=== PATIENT | female | born 1935 | race Caucasian/White ===

== ENCOUNTER 2016-11-17 13:38 | Observation (INO) ==
[2016-11-17] MEDS ORDERED: Aspirin 81 MG TAB.CHEW PO ONE (13:57)
[2016-11-17] MEDS ORDERED: Nitroglycerin 0.4 MG TAB.SUBL SL PRN (13:57)
[2016-11-17 13:59] LABS: Basophils % 0.8 %; Hematocrit 38.7 % (35.3-44.9); Hemoglobin 12.6 g/dL (11.5-15.4); Immature Granulocytes % 0.2 % (0-4); Lymphocytes # 1.6 K/mcL (0.6-4.6); Lymphocytes % 31.4 %; Mean Corpuscular HGB Conc 32.6 g/dL (31.6-35.5); Mean Corpuscular Hemoglobin 29.1 pg (28.0-33.3); Mean Corpuscular Volume 89.4 fL (83.0-100.0); Mean Platelet Volume 9.9 fL (9.4-12.4); Monocytes # 0.5 K/mcL (0.0-1.3); Monocytes % 10.5 %; Neutrophils # 2.8 K/mcL (1.6-8.9); Platelet Count 157 K/mcL (140-400); Red Blood Count 4.33 M/mcL (3.82-4.97); Red Cell Distribution Width 13.2 % (11.5-14.5); Segmented Neutrophils % 57.1 %
[2016-11-17 14:12] LABS: Calcium 9.6 mg/dL (8.6-10.8); Potassium 3.7 mEq/L (3.5-4.5)
[2016-11-17] MEDS ORDERED: *HR* Morphine 2 MG/ML SYRINGE IVP ONE (14:32)
--- NOTE | 2016-11-17 14:32 | Emergency Department Note ---
Disposition Clinical Impression: Chest pain Disposition: Admitted As Inpatient Chest Pain HPI - General Chief Complaint: ED Chest Pain Stated Complaint: Chest pain Time Seen by Provider: 11/17/16 13:54 Source: patient Limitations: no limitations Vital Signs Reviewed: Yes Nursing Notes Reviewed: Yes - History of Present Illness HPI Narrative: She presents with chest pain that started at 10:30 AM. Patient described the pain as a pressure with radiation to her left arm. Patient denies prior history of similar symptoms denies shortness of breath associated. Patient states has been several years since her last stress test and she is never had a heart catheterization. Patient denies fevers or chills patient denies bowel bladder dysfunction. Patient denies dizziness or vision issues. Severity scale (1-10): 4 - Related Data Home Medications Medication Instructions Recorded Confirmed Aspirin [Lo-Dose Aspirin EC] 81 mg PO DAILY 03/05/16 11/17/16 LORazepam [Ativan] 0.5 mg PO BID 03/05/16 11/17/16 Mv W-Ca/Iron/FA/Lutein/Hrb#179 1 each PO DAILY 03/05/16 11/17/16 [Jem Multivit For Women Caplet] Ranitidine HCl [Heartburn Relief] 150 mg PO BID 03/05/16 11/17/16 Rosuvastatin Calcium [Crestor] 5 mg PO DAILY 03/05/16 11/17/16 Allergies Allergy/AdvReac Type Severity Reaction Status Date / Time Penicillins [PCN] Allergy Hives Verified 11/17/16 13:54 Streptomycin Allergy Hives Verified 11/17/16 13:54 Sulfa (Sulfonamide Allergy Rash Verified 11/17/16 13:54 Antibiotics) All systems ED: reviewed and negative except as stated. Chest Pain PMH - Past Medical History Medical history: Reports: GERD, hyperlipidemia, renal disease Psychiatric history: Reports: anxiety - Social History Smoking Status: Never smoker Alcohol use: Reports: none Drug use: Reports: none Physical Exam - General Limitations: no limitations General appearance: alert, in no apparent distress - Head Head exam: atraumatic, normocephalic, normal inspection - Eye Eye exam: Present: normal appearance, PERRL, EOMI - ENT ENT exam: normal exam, normal oropharynx, mucous membranes moist - Neck Neck exam: Present: normal inspection, full ROM, trachea midline - Chest Chest inspection: Present: normal inspection, symmetric chest wall rise - Respiratory Respiratory exam: Present: normal lung sounds bilaterally - Cardiovascular Cardiovascular exam: Present: regular rate, normal rhythm, normal heart sounds - Abdominal Exam Abdominal exam: Present: soft, Non-Tender. Absent: tenderness, distention, guarding, rebound, rigidity - Extremities Exam Extremities exam: Present: normal inspection, full ROM. Absent: tenderness, pedal edema - Back Exam Back exam: Present: normal inspection, full ROM. Absent: tenderness - Neurological Exam Neurological exam: Present: alert, oriented X3 - Psychiatric Psychiatric exam: Present: normal affect, normal mood - Skin Skin exam: Present: warm, dry, intact, normal color Course Vital Signs Temperature 97.4 F L 11/17/16 13:44 Pulse Rate 75 11/17/16 13:44 Respiratory Rate 18 11/17/16 13:44 Blood Pressure 161/69 11/17/16 13:44 O2 Sat by Pulse Oximetry 100 11/17/16 13:44 Temperature 97.4 F L 11/17/16 13:44 Pulse Rate 64 11/17/16 16:56 Respiratory Rate 16 11/17/16 16:56 Blood Pressure 132/65 11/17/16 16:56 O2 Sat by Pulse Oximetry 94 11/17/16 16:56 Oxygen Delivery Oxygen Delivery Room Air Chest Pain - Differential Diagnosis Likely: fracture of rib, pneumothorax, atypical chest pain, st elevation myocardial infraction, chest pain - Lab Data Lab results reviewed: Yes I reviewed the patient's lab results. Result diagrams: 11/17/16 13:50 11/17/16 13:50 Lab Results 11/17/16 11/17/16 11/17/16 Range/Units 13:50 13:50 13:50 WBC 4.9 (4.3-11.1) K/mcL RBC 4.33 (3.82-4.97) M/mcL Hgb 12.6 (11.5-15.4) g/dL Hct 38.7 (35.3-44.9) % MCV 89.4 (83.0-100.0) fL MCH 29.1 (28.0-33.3) pg MCHC 32.6 (31.6-35.5) g/dL RDW 13.2 (11.5-14.5) % Plt Count 157 (140-400) K/mcL MPV 9.9 (9.4-12.4) fL Immature Gran % 0.2 (0-4) % Seg Neutrophils % 57.1 % Lymphocytes % 31.4 % Monocytes % 10.5 % Eosinophils % 0.0 % Basophils % 0.8 % Neutrophils # 2.8 (1.6-8.9) K/mcL Lymphocytes # 1.6 (0.6-4.6) K/mcL Monocytes # 0.5 (0.0-1.3) K/mcL Eosinophils # 0.0 (0.0-0.6) K/mcL Basophils # 0.0 (0.0-0.2) K/mcL Sodium 140 (136-145) mEq/L Potassium 3.7 (3.5-4.5) mEq/L Chloride 108 (98-109) mEq/L Carbon Dioxide 26 (19-29) mEq/L BUN 22 H (7-20) mg/dL Creatinine 1.22 H (0.57-1.11) mg/dL Est GFR ( Amer) 51 L (> 60) Est GFR (Non-Af Amer) 42 L (> 60) BUN/Creatinine Ratio 18 (6-26) Glucose 129 H (70-99) mg/dL Calculated Osmolality 295 (280-300) Calcium 9.6 (8.6-10.8) mg/dL Troponin I 0.01 (0-0.03) ng/mL Urine Color (Yellow) Urine Clarity (Clear) Urine pH (5.0-8.0) pH Units Ur Specific [place] (1.010-1.025) Urine Protein (Neg-Trace) mg/dL Urine Glucose (UA) (Normal) mg/dL Urine Ketones (Negative) mg/dL Urine Blood (Negative) Urine Nitrite (Negative) Urine Bilirubin (Negative) Urine Urobilinogen (Normal) mg/dL Ur Leukocyte Esterase (Negative) Urine Microscopic RBC (0-3) per hpf Urine Microscopic WBC (0-3) per hpf Ur Squamous Epith Cells (None-Few) per lpf Urine Bacteria (None-Few) per hpf Hyaline Casts (None-Few) per lpf 11/17/16 Range/Units 14:45 WBC (4.3-11.1) K/mcL RBC (3.82-4.97) M/mcL Hgb (11.5-15.4) g/dL Hct (35.3-44.9) % MCV (83.0-100.0) fL MCH (28.0-33.3) pg MCHC (31.6-35.5) g/dL RDW (11.5-14.5) % Plt Count (140-400) K/mcL MPV (9.4-12.4) fL Immature Gran % (0-4) % Seg Neutrophils % % Lymphocytes % % Monocytes % % Eosinophils % % Basophils % % Neutrophils # (1.6-8.9) K/mcL Lymphocytes # (0.6-4.6) K/mcL Monocytes # (0.0-1.3) K/mcL Eosinophils # (0.0-0.6) K/mcL Basophils # (0.0-0.2) K/mcL Sodium (136-145) mEq/L Potassium (3.5-4.5) mEq/L Chloride (98-109) mEq/L Carbon Dioxide (19-29) mEq/L BUN (7-20) mg/dL Creatinine (0.57-1.11) mg/dL Est GFR ( Amer) (> 60) Est GFR (Non-Af Amer) (> 60) BUN/Creatinine Ratio (6-26) Glucose (70-99) mg/dL Calculated Osmolality (280-300) Calcium (8.6-10.8) mg/dL Troponin I (0-0.03) ng/mL Urine Color Yellow (Yellow) Urine Clarity Clear (Clear) Urine pH 6.5 (5.0-8.0) pH Units Ur Specific [place] 1.014 (1.010-1.025) Urine Protein Negative (Neg-Trace) mg/dL Urine Glucose (UA) Normal (Normal) mg/dL Urine Ketones Negative (Negative) mg/dL Urine Blood Negative (Negative) Urine Nitrite Negative (Negative) Urine Bilirubin Negative (Negative) Urine Urobilinogen Normal (Normal) mg/dL Ur Leukocyte Esterase Moderate H (Negative) Urine Microscopic RBC 0-3 (0-3) per hpf Urine Microscopic WBC 5-15 H (0-3) per hpf Ur Squamous Epith Cells Few (None-Few) per lpf Urine Bacteria None Seen (None-Few) per hpf Hyaline Casts None Seen (None-Few) per lpf - Radiology Data Radiology results reviewed: Yes I reviewed the patient's radiology results. Chest X-Ray 11/17/16 13:53 IMPRESSION: No acute cardiopulmonary disease. D/ / Nile Valdez MD / Nile Valdez MD Interpreting Provider: Nile Valdez MD - EKG Data EKG attestation: Yes I reviewed and interpreted this EKG. EKG shows normal: sinus rhythm Rate: normal Rhythm: NSR
[2016-11-17] MEDS ORDERED: Ondansetron 4 MG/2 ML VIAL IVP ONE (14:37)
[2016-11-17 15:28] LABS: Bilirubin,Urine Negative (Negative); Blood,Urine Negative (Negative); Clarity,Urine Clear (Clear); Color,Urine Yellow (Yellow); Glucose,Urine (UA) Normal (Normal); Ketones,Urine Negative (Negative); Leukocyte Esterase,Urine Moderate (Negative); Nitrite,Urine Negative (Negative); PH,Urine 6.5 pH Units (5.0-8.0); Protein,Urine Negative (Neg-Trace); Specific Gravity,Urine 1.014 (1.010-1.025); Urobilinogen,Urine Normal (Normal)
[2016-11-17 15:32] LABS: Bacteria,Urine None Seen per hpf (None-Few); Hyaline Casts,Urine None Seen per lpf (None-Few); RBC,Urine 0-3 per hpf (0-3); Squamous Epithelial Cell,Urine Few per lpf (None-Few)
--- NOTE | 2016-11-17 19:49 | Event Note ---
Date of Encounter: 11/17/16 Time of Encounter: 19:47 I examined this patient and my medical decision-making was reviewed with the Advanced Practice Nurse, Ashlee Egan CNP. I agree with the documented findings, disposition and treatment plan as described except to the extent set forth below. The patient presented with left-sided sudden onset of pressure-like chest pain while she was ambulating. Denies any associated diaphoresis lightheadedness and nausea. Pain was relieved with aspirin and nitroglycerin. Currently she is chest pain-free. On exam she is in no acute distress. Heart is regular with normal S1 and a split S2, lungs are clear to auscultation bilaterally, abdomen is soft. EKG revealed by myself shows normal sinus rhythm with LVH, no ST or T-wave changes. Troponin is 0.01. Creatinine is 1.22. Her baseline and June 2015 was 1.2. Plan: Chest pain with risk factors including age and gender and hyperlipidemia. We will place the patient in observation, monitor on telemetry, trend troponin. Order a stress test in the morning. Obtain echocardiogram. For DVT prophylaxis we will encourage early ambulation. She is fully ambulatory and therefore does not require pharmacological prophylaxis.
--- NOTE | 2016-11-17 20:12 | Internal Med History&Physical ---
Date of Encounter: 11/17/16 Time of Encounter: 20:09 Assessment and Plan (1) Chest pain Current visit: Yes Status: Acute That started on Nile Cowgill. Relieved with nitroglycerin in the ED. Has not had a previous ischemic eval. Initial troponin negative, EKG atrial paced. Continue to cycle troponin, check echo, and stress test. Consult cardiology if needed. Continue home aspirin and statin. PRN nitroglycerin. Qualifiers: Chest pain type: unspecified Qualified Code(s): R07.9 - Chest pain, unspecified (2) CKD (chronic kidney disease) stage 3, GFR 30-59 ml/min Current visit: Yes Status: Acute Per history. Creatinine 1.2, which appears to be baseline. Intermittently monitor. (3) GERD (gastroesophageal reflux disease) Current visit: Yes Status: Acute Per history. Continue home PPI. Qualifiers: Esophagitis presence: without esophagitis Qualified Code(s): K21.9 - Gastro -esophageal reflux disease without esophagitis (4) Anxiety Current visit: Yes Status: Acute Per history. Symptoms controlled with home Ativan. (5) DVT prophylaxis Current visit: Yes Status: Acute Heparin. Internal Medicine - H&P: HPI Chief complaint: Chest pain Admitted From: Home History of present illness: Ms. Infante is a 80 year old female with past medical history hyperlipidemia, GERD, anxiety who presented to [facility] on 2016 with complaints of chest pain. She was placed in observation for ACS rule out. Information obtained from chart review and patient report. Patient states she was at [employer] shopping with chest pain started chest pain was midsternal radiating to the left she describes the pain as tall rated at 5 out of 10 nothing made worse and nitroglycerin relieved the chest pain in the ED. She has no chest pain on my exam. No shortness of breath no abdominal pain no nausea vomiting or diarrhea Past Med Surg Social Fam HX - Past Medical History Medical history: GERD, hyperlipidemia, renal disease Psychiatric history: anxiety - Past Surgical History Surgical History: non-contributory - Social History Smoking Status: Never smoker Smokeless Tobacco Status: No Alcohol use: none Drug use: none - Additional Family History Additional family history: reviewed and non-contributory Internal Medicine - H&P: Meds Aspirin [Lo-Dose Aspirin EC] 81 mg PO DAILY 03/05/16 [History] LORazepam [Ativan] 0.5 mg PO BID 03/05/16 [History] Mv W-Ca/Iron/FA/Lutein/Hrb#179 [Jem Multivit For Women Caplet] 1 each PO DAILY 03/05/16 [History] Ranitidine HCl [Heartburn Relief] 150 mg PO BID 03/05/16 [History] Rosuvastatin Calcium [Crestor] 5 mg PO DAILY 03/05/16 [History] Allergies Penicillins [PCN] Allergy (Verified 11/17/16 13:54) Hives Streptomycin Allergy (Verified 11/17/16 13:54) Hives Sulfa (Sulfonamide Antibiotics) Allergy (Verified 11/17/16 13:54) Rash All Systems PM: A 10-system review of systems was performed and is negative for pertinent findings except as documented above in the HPI. - Constitutional Constitutional: no chills, no fever(s), no night sweats - EENT Eyes: no change in vision, no discharge, no pain, no photophobia Ears: no ear discharge, no ear pain, no tinnitus Nose, mouth and throat: no dysphagia, no nasal discharge, no neck pain, no sore throat - Cardiovascular Cardiovascular ROS IM: no chest pain, no diaphoresis, no dyspnea, no lightheadedness, no palpitations, no syncope - Respiratory Respiratory: no cough, no dyspnea, no wheezing, no excessive phlegm production - Gastrointestinal Gastrointestinal: no abdominal pain, no diarrhea, no hematemesis, no hematochezia, no melena, no nausea, no vomiting - Genitourinary Genitourinary: no change in urinary stream, no dysuria, no flank pain, no hematuria - Musculoskeletal Musculoskeletal ROS IM: no numbness, no tingling - Integumentary Integumentary IM: no rash, no unusual bruising - Neurological Neurological ROS: no confusion, no convulsions, no focal weakness, no numbness, no tingling, no tremor(s) - Hematologic/Lymphatic Hematologic/Lymphatic: no easy bruising - Constitutional Vitals: Temp Pulse Resp BP Pulse Ox 97.3 F L 66 15 126/71 94 11/17/16 19:28 11/17/16 19:28 11/17/16 19:28 11/17/16 19:28 11/17/16 19:28 - Head Head exam: Present: atraumatic, normocephalic - Eye Eye exam: Present: PERRL, conjuntiva pink, sclera anicteric Pupils: Present: PERRL - Neck Neck exam general surgery: Present: supple, trachea midline. Absent: lymphadenopathy - Respiratory Respiratory exam: Present: CTAB. Absent: accessory muscle use, rales, rhonchi, wheezes - Cardiovascular Cardiovascular exam: Present: RRR, +S1, +S2. Absent: diastolic murmur, gallop, rubs, systolic murmur - GI/Abdominal GI/Abdominal exam: Present: normal bowel sounds, soft, no peritoneal signs. Absent: distended, tenderness - Extremities Exam Extremities exam: Present: warm, radial pulses palpable and symetrical. Absent : calf tenderness, cyanotic, pedal edema - Neurological Exam Neurological exam: Present: CN II-XII intact, oriented X3, no focal deficits. Absent: pronater drift, facial droop, speech deficit - Skin Skin exam: Present: dry, intact Internal Med - H&P Results - Labs CBC & Chem 7: 11/17/16 13:50 11/17/16 13:50 - EKG Data EKG shows normal: sinus rhythm
[2016-11-17] MEDS: *HR* LORazepam 0.5 MG TABLET PO SCH (21:18)
[2016-11-17] MEDS: Famotidine 20 MG TABLET PO SCH (21:18)
[2016-11-18 01:43] LABS: Basophils % 0.4 %; Hematocrit 34.4 % (35.3-44.9); Hemoglobin 11.2 g/dL (11.5-15.4); Immature Granulocytes % 0.1 % (0-4); Lymphocytes # 1.8 K/mcL (0.6-4.6); Lymphocytes % 26.9 %; Mean Corpuscular HGB Conc 32.6 g/dL (31.6-35.5); Mean Corpuscular Hemoglobin 28.9 pg (28.0-33.3); Mean Corpuscular Volume 88.9 fL (83.0-100.0); Mean Platelet Volume 9.7 fL (9.4-12.4); Monocytes # 0.7 K/mcL (0.0-1.3); Monocytes % 10.9 %; Neutrophils # 4.1 K/mcL (1.6-8.9); Platelet Count 138 K/mcL (140-400); Red Blood Count 3.87 M/mcL (3.82-4.97); Red Cell Distribution Width 13.5 % (11.5-14.5); Segmented Neutrophils % 61.7 %
[2016-11-18 02:04] LABS: Potassium 4.2 mEq/L (3.5-4.5)
[2016-11-18] MEDS ORDERED: Regadenoson 0.4 MG/5 ML SYRINGE IVP ONE (06:28)
[2016-11-18] MEDS ORDERED: Aspirin 81 MG TAB.CHEW PO SCH (09:00)
--- NOTE | 2016-11-18 10:33 | Nuclear Medicine Stress Report ---
Regadenoson Nuclear Stress Name: Jade Infante Date of Study: 11/18/2016 Date: 1935 Ht: 64.0 in Medical Record#: [id number] Age: 80 Wt: 156.0 lb Gender: Female Order #: [id number] Location: [facility] Room: [facility] Supervising Provider: Tricia Simmons CNP Reading Physician: Danielle Knutson DO Ordering Physician: Vanessa Saldivar MD Primary Care Physician: Marin Roldan DO Stress Technologist: Earnest Khanna LYE PEEL OPERATOR, [facility] Insulation Machine Operator: Kwadwo Terrazas Indications: Chest Pain Impression: Perfusion imaging was negative for ischemia or infarct. Pharmacologic ECG was negative for ischemia at the level of heart rate achieved. Gated EF = >70%. History: Hypercholesteremia Stress Test Summary: Stress Test Type: Pharmacologic Regadenoson 0.4mg/5ml given IV Baseline Information: Initial Heart Rate: 66 Blood Pressure: 104/70 Stress Information: Stress Time: 4 min 00 sec Test Terminated Due to (primary): As per protocol Maximum Blood Pressure: 110/62 Maximum Heart Rate: 92 Percent Maximum Heart Rate Achieved: 66 Double Product: [id number] METS Reached: 1 Symptoms: Shortness of breath Nuclear Summary: SPECT myocardial perfusion imaging using Tc99m Sestamibi given intravenously was performed at rest and following cardiac stress testing. The resting images were obtained following initial dose of 11.1 mCi. Following stress an additional dose of 35.3 mCi was given at peak exercise or 30 seconds post regadenoson infusion. Medication Given: Time Medication Dose Units Route Findings: Stress Note * Resting ECG demonstrated normal sinus rhythm with nonspecific ST abnormalities. * Pharmacologic stress ECG is negative for ischemia at level of heart rate achieved. * No arrhythmias were noted during stress. * Patient had no chest pain during stress. Hemodynamic responses * Normal hemodynamic responses to pharmacologic stress. Study Quality * Study quality is good. Gated EF > 70% * Gated EF > 70%. Left Ventricle * The left ventricle is not dilated. NORMALS * Normal wall motion. * Normal segmental perfusion in stress. * Normal Segmental Perfusion in rest. TID * No evidence of transient ischemic dilatation. Lung Uptake * There is no evidence of increase lung uptake. Updated by Danielle Knutson on 11/18/2016 10:29:06 AM electronically signed on 11/18/2016 10:29:18 AM with status of Final
[2016-11-18] MEDS: *HR* LORazepam 0.5 MG TABLET PO SCH (10:34)
[2016-11-18] MEDS: Famotidine 20 MG TABLET PO SCH (10:35)
[2016-11-18 10:42] VITALS: BP 133/72
--- NOTE | 2016-11-18 10:47 | ECHO - Doppler Report ---
Echocardiogram Name: Jade Infante Date of Study: 11/18/2016 Date: 1935 Ht: 64.0 in Medical Record#: [id number] Age: 80 Wt: 145.0 lb Gender: Female BSA: 1.71 Order #: [id number] Location: [facility] Room #: 3B14 Reading Physician: Danielle Knutson DO Rn Labor Delivery: Zehra Trejo RVT, [facility] Ordering Physician: Ashlee Egan CNP Primary Physician: Marin Roldan DO Indications: Chest pain Impressions: LVEF 65%. Normal left ventricular size and systolic function. There is evidence of mild diastolic dysfunction of the left ventricle. Normal right ventricular size and function. Mild mitral regurgitation. Mild tricuspid regurgitation. No pulmonary hypertension. Left Ventricular Wall Motion: Rest Echo Findings All wall segments showed normal motion. Findings: Study Quality * Technically adequate exam. ECG Findings * Normal sinus rhythm. Left Ventricle * Basal sigmoid septum. No LVOTO. * Mild left ventricular diastolic dysfunction. * LVEF 65%. Aorta * Normally sized aortic root. Left Atrium * Normal left atrial size. Mitral Valve * Normal mitral valve structure. * No mitral stenosis. * Mild mitral regurgitation. Aortic Valve * No aortic regurgitation. * Trileaflet aortic valve. * Normal aortic valve structure. * No aortic stenosis. Tricuspid Valve * Normal tricuspid valve structure. * Mild tricuspid regurgitation. * Estimated RA pressure is 3 mmHg. * Estimated RVSP is 32 mmHg. * No pulmonary hypertension. Pulmonic Valve * Pulmonic valve is not well visualized. * No pulmonic stenosis. * No pulmonic regurgitation. Pulmonary Artery * Pulmonary artery not well visualized. Right Ventricle * Normal right ventricular structure and function. Right Atrium * Normal right atrial size. Pericardium * There is no pericardial effusion present. Interatrial Septum * No evidence of PFO by color Doppler. IVC * Normal IVC dimensions and inspiratory collapse. History Hypercholesteremia 05-14-2011 a Previous Echo was performed. Measurements: BP: 117/ 65 2D Normal Values RVIDd: 3.00 cm <2.7 cm IVSd: .90 cm 0.6 - 1.0 cm LVIDd: 2.80 cm 3.7 - 5.6 cm LVPWd: 1.00 cm 0.6 - 1.1 cm LVIDs: 1.90 cm 1.5 - 3.6 cm AO: 2.40 cm < 4.0 cm LA: 2.50 cm 2.0 - 4.0cm %FS: 32.10 cm >25 % LA volume: 33 Mitral Valve Dec Time:275.00 msec Peak E:.78 m/sec Peak A:1.09 m/sec E/A Ratio:0.7 Peak E' Lat Joaquin:7.69 cm/s Peak E' Med Joaquin:6.68 cm/s E/E' Lat Ratio:10.1 E/E' Med Ratio:11.6 Tricuspid Valve TV Regurg Peak Grad: 29.00mmHg TV Regurg Peak Joaquin: 2.71m/sec Updated by Danielle Knutson on 11/18/2016 10:34:52 AM electronically signed on 11/18/2016 10:41:36 AM with status of Final Wall Motion Robertson: 1=Normal, 2=Hypokinesis, 3=Akinesis, 4=Dyskinesis, 5=Aneurysmal, 6=Hyperkinetic, X=Not Visualized (Blank)=Missing
--- NOTE | 2016-11-18 11:22 | Electrocardiograph Report ---
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
--- NOTE | 2016-11-18 15:28 | Discharge Summary ---
Date of Encounter: 11/18/16 Time of Encounter: 15:26 - Discharge Diagnosis (1) Chest pain Priority: Primary Status: Acute Qualifiers: Chest pain type: unspecified Qualified Code(s): R07.9 - Chest pain, unspecified (2) GERD (gastroesophageal reflux disease) Priority: Secondary Status: Acute Qualifiers: Esophagitis presence: without esophagitis Qualified Code(s): K21.9 - Gastro -esophageal reflux disease without esophagitis (3) Anxiety Priority: Secondary Status: Acute (4) CKD (chronic kidney disease) stage 3, GFR 30-59 ml/min Priority: Secondary Status: Acute - Discharge Medications Home Medications: Aspirin [Lo-Dose Aspirin EC] 81 mg PO DAILY 03/05/16 [History] LORazepam [Ativan] 0.5 mg PO BID 03/05/16 [History] Mv W-Ca/Iron/FA/Lutein/Hrb#179 [Jem Multivit For Women Caplet] 1 each PO DAILY 03/05/16 [History] Ranitidine HCl [Heartburn Relief] 150 mg PO BID 03/05/16 [History] Rosuvastatin Calcium [Crestor] 5 mg PO DAILY 03/05/16 [History] Allergies/Adverse Reactions: Allergies Penicillins [PCN] Allergy (Verified 11/17/16 13:54) Hives Streptomycin Allergy (Verified 11/17/16 13:54) Hives Sulfa (Sulfonamide Antibiotics) Allergy (Verified 11/17/16 13:54) Rash Procedures/tests Complete & Pending: Procedures Performed prior 72 hours Category Date Time Status NM randal perf SPECT multi [NM] Routine Exams 11/17/16 19:23 Taken ECG 12 lead ECG [ECG] Routine Y 11/17/16 19:15 Ordered ECG 12 lead ECG [ECG] Routine Y 11/18/16 07:00 Completed ECG 12 lead ECG [ECG] Stat Y 11/17/16 19:15 Completed EV echocardiogram Routine Y 11/18/16 08:00 Completed SP pharm nuclear stress Routine Y 11/18/16 07:30 Completed Date of admission: 11/17/16 16:36 Primary care physician: Marin Roldan DO Consults: 11/17/16 19:15 Consult to Cardiac Rehabilitation-Phase1 [CONS] Routine Comment: Reason for Consult: AMI Call Completed: Yes Consult to Nurse Navigator [CONS] Routine Comment: - Patient Status Disposition: Home, Self-Care Condition: Good Functional capacity at discharge: independent ambulation Overall status at discharge: patient is back to baseline - Discharge Instructions Follow Up With: Jessa Hinds CNP [Advanced Practice Nurse] - 11/24/16 9:00 am - Diet and Activity Activity: increase activity as tolerated Diet: low fat, low cholesterol, low salt diet Hospital course: Hospital presentation:Ms. Infante is a 80 year old female with past medical history hyperlipidemia, GERD, anxiety who presented to [facility] on 2016 with complaints of chest pain. She was placed in observation for ACS rule out. Information obtained from chart review and patient report. Patient states she was at [employer] with chest pain started chest pain was midsternal radiating to the left she describes the pain as tall rated at 5 out of 10 nothing made worse and nitroglycerin relieved the chest pain in the ED. Hospital course: The patient was placed in observation. Serial troponins were negative. EKG and telemetry were nonrevealing. Echocardiogram revealed normal ejection fraction, mitral and tricuspid regurgitation. Stress test was negative. Patient is chest pain-free. Her chest pain was likely anxiety induced. She was counseled about stress relieving behavioral modifications. She was instructed to follow-up With her primary care physician and one week. She will be discharged home. - Time Spent with Patient Total time spent providing and/or coordinating discharge services: - Constitutional Vitals: Temp Pulse Resp BP Pulse Ox 97.4 F L 64 16 133/72 97 11/18/16 10:39 11/18/16 10:39 11/18/16 10:39 11/18/16 10:39 11/18/16 10:39 - Cardiovascular Cardiovascular exam: Present: RRR, +S1, +S2, systolic murmur. Absent: diastolic murmur, gallop, rubs - GI/Abdominal GI/Abdominal exam: Present: normal bowel sounds, soft, no peritoneal signs. Absent: distended, tenderness - Extremities Exam Extremities exam: Present: warm, radial pulses palpable and symetrical. Absent : calf tenderness, cyanotic, pedal edema
--- NOTE | 2016-11-18 16:39 | Electrocardiograph Report ---
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
--- NOTE | 2016-11-18 16:41 | Electrocardiograph Report ---
[place] [id number] Test Date: 2016-11-18 Pat Name: Jade Infante Department: 113 Room: 3B Gender: F Legal Process Specialist: DALLIN : [id number] Requested By: Ashlee Egan Order Number: [id number] Reading MD: Bisi Ramirez Measurements Intervals [place] Rate: 62 P: 39 W[place]: 163 QRS: -12 QRSD: 83 T: 20 QT: 397 QTc: 403 Interpretive Statements SINUS RHYTHM MODERATE VOLTAGE CRITERIA FOR LVH, CONSIDER NORMAL VARIANT Electronically Signed On 11-18-2016 16:40:13 EDT by Bisi Ramirez
== END 2016-11-18 16:00 | disposition home or self-care (01) ==
LOC: EMEROO 13:38 → 3BNU 13:38 → SUATTDRO 16:36 → 3BNU 17:00
PROVIDERS: ADMIT Internal Medicine; ATTEND Internal Medicine